=== PATIENT | male | born 1960 | race Two or more races ===

== ENCOUNTER 2023-12-18 04:31 | Emergency (ER) | payer OTHER ==
[~2023-12-18] VITALS: Ht 172.7 cm; Wt 85.7 kg
[2023-12-18] MEDS ORDERED: TOPROL XL50 M1 (04:42)
[2023-12-18] MEDS ORDERED: CLONAZEPAM0.5 MG PO (04:42)
[2023-12-18] MEDS ORDERED: LIPITOR40 M1 PO (04:43)
[2023-12-18] MEDS ORDERED: TRIAMCINOLONE ACETONIDE 40 MG/ML VIAL IM ONE (05:00)
[2023-12-18] MEDS ORDERED: ORPHENADRINE CITRATE 30 MG/ML AMPUL IM ONE (05:00)
[2023-12-18] MEDS ORDERED: OxyCODONE HCL/APAP UD (PERCOCET) PO ONE (05:00)
== END 2023-12-18 05:05 | disposition home or self-care (01) ==
LOC: ER 04:32
DX: M54.9 Dorsalgia, unspecified (principal)

== ENCOUNTER 2023-12-29 10:52 | Inpatient (IN) | payer OTHER ==
[~2023-12-29] VITALS: Ht 152.4 cm; Wt 85.7 kg
[~2023-12-29 10:52] MED LIST: CLONAZEPAM0.5 MG PO; LIPITOR40 M1 PO; TOPROL XL50 M1
[2023-12-29] MEDS ORDERED: SYNTHROID50 MCG PO (12:00)
[2023-12-29] MEDS ORDERED: UROXATRAL10 MG PO (12:01)
[2024-01-02] MEDS ORDERED: CEFAZOLIN SODIUM 1,000 MG VIAL ONE (06:19)
[2024-01-02] MEDS ORDERED: VANCOMYCIN HCL 1,000 MG VIAL ONE ×2 (06:19→07:05)
[2024-01-02] MEDS ORDERED: ISOPROPYL ALCOHOL 30 ML OUNCE TOP ONE (07:05)
[2024-01-02] MEDS ORDERED: HEMOSTATIC MATRIX 1 KIT KIT TOP ONE (07:05)
[2024-01-02] MEDS ORDERED: METHYLPREDNISOLONE SOD SUCC 125 MG VIAL ONE (07:06)
[2024-01-02] MEDS ORDERED: COLACE100 MG PO (07:19)
[2024-01-02] MEDS ORDERED: MEDROLPACK PO (07:19)
[2024-01-02] MEDS ORDERED: PERCOCET 5-3251 EACH PO (07:19)
[2024-01-02] MEDS ORDERED: AMOX-CLAV 875-1 EACH PO (07:19)
[2024-01-02] MEDS ORDERED: GABAPENTIN100 M2 PO (07:20)
[2024-01-02] MEDS ORDERED: METHYLPREDNISOLONE ACETATE 80 MG/ML VIAL ONE (07:21)
[2024-01-02] MEDS ORDERED: NEURONTIN800 MG PO (07:22)
[2024-01-02] MEDS ORDERED: PROMETHAZINE HCL 50 MG/ML AMPUL IM PRN (07:30)
[2024-01-02] MEDS ORDERED: ENALAPRILAT DIHYDRATE 1.25 MG/ML VIAL IV PRN (07:30)
[2024-01-02] MEDS ORDERED: 0.9 % SODIUM CHLORIDE 1,000 ML IV SCH (07:30)
[2024-01-02] MEDS ORDERED: TRANEXAMIC ACID 100MG/1ML (1000MG) AMPUL IV ONE (07:34)
[2024-01-02] MEDS ORDERED: METHYLPREDNISOLONE SOD SUCC 125 MG VIAL IV SCH (09:00)
[2024-01-02] MEDS ORDERED: MORPHINE SULFATE 4 MG,MORPHINE SULFATE 2 MG IV SCH (09:00)
[2024-01-02] MEDS ORDERED: TAMSULOSIN HCL 0.4 MG CAP PO SCH (09:00)
[2024-01-02] MEDS ORDERED: CEFAZOLIN SODIUM 1,000 MG in 0.9 % SODIUM CHLORIDE 50 ML IV SCH (09:00)
[2024-01-02] MEDS ORDERED: FAMOtidine 20 MG TABLET PO SCH (09:00)
[2024-01-02] MEDS ORDERED: DOCUSATE SODIUM 100MG CAP PO SCH (09:00)
[2024-01-02] MEDS ORDERED: MORPHINE SULFATE 4 MG/ML VIAL IV SCH (09:00)
[2024-01-02] MEDS ORDERED: SODIUM CL 0.9% 50 ML IV.SOLN IV ONE ×2 (16:31→16:42)
[2024-01-02] MEDS ORDERED: GABAPENTIN 800 MG TABLET PO SCH (21:00)
[2024-01-02] MEDS ORDERED: VANCOMYCIN HCL 1,000 MG VIAL IV SCH (21:00)
[2024-01-03] MEDS ORDERED: SODIUM CHLORIDE 0.45 % 1,000 ML IV SCH
[2024-01-03] MEDS ORDERED: LEVOTHYROXINE SODIUM 50 MCG TABLET PO SCH (06:00)
[2024-01-03] MEDS ORDERED: OxyCODONE HCL/APAP UD (PERCOCET) PO PRN (06:01)
[2024-01-03 07:53] LABS: HEMATOCRIT 39.2 % (39.0-48.0); HEMOGLOBIN 13.4 g/dL (13-16.00); MEAN CELL VOLUME 95.1 fL (80.0-100.00); MEAN CORPUSCULAR HEMOGLOBIN 32.4 pg (27.00-32.0); MEAN CORPUSCULAR HGB CONC 34.1 g/dl (32.0-36.0); PLATELET COUNT 472 K/uL (150-450); RED BLOOD COUNT 4.12 M/uL (4.00-6.00); RED CELL DISTRIBUTION WIDTH 13.4 % (11.5-14.5)
[2024-01-03 08:33] LABS: CALCIUM 8.7 mg/dL (8.5-10.1); CREATININE SERUM 0.91 mg/dL (0.70-1.30); GFR 84.42; POTASSIUM 4.67 mEq/L (3.5-5.1)
[2024-01-03] MEDS ORDERED: METOPROLOL SUCCINATE 50 MG TAB.SR.24H PO SCH (09:00)
== END 2024-01-04 13:52 | DRG 455 ==
LOC: O/R 01-02 05:00 → SURH 01-02 07:00
PROVIDERS: ADMIT Orthopaedic Surgery Orthopaedic Surgery of the Spine; ATTEND Orthopaedic Surgery Orthopaedic Surgery of the Spine
PROC: 0SG1071 Fusion of 2 or more Lumbar Vertebral Joints with Autologous Tissue Substitute, Posterior Approach, Posterior Column, Open Approach (ICD-10-PCS; 2024-01-02)
PROC: 0ST20ZZ Resection of Lumbar Vertebral Disc, Open Approach (ICD-10-PCS; 2024-01-02)
PROC: 0QB30ZZ Excision of Left Pelvic Bone, Open Approach (ICD-10-PCS; 2024-01-02)
PROC: 07DR0ZZ Extraction of Iliac Bone Marrow, Open Approach (ICD-10-PCS; 2024-01-02)
PROC: 0SG10A0 Fusion of 2 or more Lumbar Vertebral Joints with Interbody Fusion Device, Anterior Approach, Anterior Column, Open Approach (ICD-10-PCS; principal; 2024-01-02 07:00)
DX: M48.062 Spinal stenosis, lumbar region with neurogenic claudication (principal); M51.36 Other intervertebral disc degeneration, lumbar region